=== PATIENT | female | born 1990 | race Caucasian/White ===

== ENCOUNTER 2018-02-22 10:55 | Emergency (ER) | payer MEDICAID ==
[~2018-02-22] VITALS: Ht 160 cm; Wt 71.0 kg
[2018-02-22 11:53] LABS: CLARITY URINE CLEAR (CLEAR); COLOR URINE YELLOW (YELLOW); KETONES URINE NEGATIVE (NEGATIVE); LEUKOCYTE ESTERASE URINE NEGATIVE (NEGATIVE); NITRITE URINE NEGATIVE (NEGATIVE); OCCULT BLOOD URINE 2+ (NEGATIVE); PROTEIN URINE NEGATIVE (NEGATIVE); SPECIFIC GRAVITY URINE 1.023 (1.005-1.030); UROBILINOGEN URINE 0.2 E.U./dL (0.2-1.0)
[2018-02-22 12:39] LABS: BASOPHILS % 0.5 % (0.0-2.0); EOSINOPHILS % 2.4 % (0.0-5.0); HEMATOCRIT. 39.9 % (36.0-48.0); HEMOGLOBIN. 13.6 g/dL (12.0-16.0); LYMPHOCYTES % 16.1 % (20.0-50.0); MEAN CORPUSCULAR HEMOGLOBIN 30.3 pg (28.0-32.0); MEAN CORPUSCULAR VOLUME 88.4 fL (81.0-99.0); MEAN PLATELET VOLUME 8.5 fl (7.4-10.4); MONOCYTES % 7.1 % (2.0-8.0); NEUTROPHILS % 73.9 % (40.0-76.0); PLATELET 220 x1000/uL (130-400); RED BLOOD CELL COUNT 4.51 mill/uL (4.2-5.4); RED CELL DISTRIBUTION WIDTH 12.8 % (11.6-14.6)
[2018-02-22 12:45] LABS: CHLORIDE 111 mEq/L (98-107)
[2018-02-22 13:08] LABS: B-HCG QUANTITATIVE 26024 mIU/mL (<3)
[2018-02-22 13:24] VITALS: BP 115/77
== END 2018-02-22 15:00 | disposition home or self-care (01) ==
LOC: ER 12:52
DX: O03.9 Complete or unspecified spontaneous abortion without complication (principal); Z3A.01 Less than 8 weeks gestation of pregnancy; Z98.890 Other specified postprocedural states
CPT/HCPCS: 36415; 76830; 76856; 80053; 81003; 84702; 85025; 86850; 86900; 86901; 99285; Z7610

== ENCOUNTER 2018-11-06 10:20 | Inpatient (IN) | payer MEDICAID, OTHER ==
[~2018-11-06] VITALS: Ht 157.5 cm; Wt 64.0 kg
[2018-11-06] MEDS ORDERED: SODIUM CHLORIDE 0.9% 1,000 ML IV ONE ×2 (11:02→14:00)
[2018-11-06 11:47] LABS: CLARITY URINE CLOUDY (CLEAR); COLOR URINE DARK YELLOW (YELLOW); KETONES URINE NEGATIVE (NEGATIVE); LEUKOCYTE ESTERASE URINE TRACE (NEGATIVE); NITRITE URINE NEGATIVE (NEGATIVE); OCCULT BLOOD URINE 2+ (NEGATIVE); PROTEIN URINE NEGATIVE (NEGATIVE); SPECIFIC GRAVITY URINE 1.019 (1.005-1.030); UROBILINOGEN URINE 0.2 E.U./dL (0.2-1.0)
[2018-11-06 12:04] LABS: BASOPHILS % 0.3 % (0.0-2.0); EOSINOPHILS % 5.7 % (0.0-5.0); HEMATOCRIT. 44.2 % (36.0-48.0); HEMOGLOBIN. 14.8 g/dL (12.0-16.0); LYMPHOCYTES % 21.1 % (20.0-50.0); MEAN CORPUSCULAR HEMOGLOBIN 30.2 pg (28.0-32.0); MEAN CORPUSCULAR VOLUME 90.5 fL (81.0-99.0); MEAN PLATELET VOLUME 9.8 fl (7.4-10.4); MONOCYTES % 6.3 % (2.0-8.0); NEUTROPHILS % 66.6 % (40.0-76.0); PLATELET 173 x1000/uL (130-400); RED BLOOD CELL COUNT 4.89 mill/uL (4.2-5.4); RED CELL DISTRIBUTION WIDTH 13.5 % (11.6-14.6)
[2018-11-06 12:08] LABS: CHLORIDE 110 mEq/L (98-107); INR 1.5; PROTHROMBIN TIME 14.8 sec (9.1-11.1)
[2018-11-06 12:48] LABS: HEPATITIS B SURFACE ANTIGEN NEGATIVE
[2018-11-06 13:17] LABS: HEPATITIS A AB IGM NEGATIVE (NEGATIVE)
[2018-11-06] MEDS ORDERED: METRONIDAZOLE 500 MG PREMIX 100 ML IV ONE (14:00)
[2018-11-06] MEDS ORDERED: CEFTRIAXONE 1 G PREMIX 50 ML IV ONE (14:00)
[2018-11-06] MEDS ORDERED: NA PHOS,M-B/NA PHOS,DI-BA ENEMA 118ML PR PRN (15:15)
[2018-11-06] MEDS ORDERED: CLONIDINE 0.1MG TABLET PO PRN (15:15)
[2018-11-06] MEDS ORDERED: GUAIFENESIN 200MG/10ML SUGAR FREE UDC PO PRN (15:15)
[2018-11-06] MEDS ORDERED: ZOLPIDEM TARTRATE 5MG TABLET PO PRN (15:15)
[2018-11-06] MEDS ORDERED: DOCUSATE SODIUM 100MG CAPSULE PO PRN (15:15)
[2018-11-06] MEDS ORDERED: MAGNESIUM/ALUMINUM HYDROXIDE/SIMETHICONE 30ML UDC PO PRN (15:15)
[2018-11-06] MEDS ORDERED: TRAMADOL 50MG TABLET PO PRN (15:15)
[2018-11-06] MEDS ORDERED: ONDANSETRON HCL 4MG/2ML INJ IV PRN (15:15)
[2018-11-06] MEDS ORDERED: NITROGLYCERIN 0.4MG TABLET SL SL PRN (15:15)
[2018-11-06] MEDS ORDERED: IPRATROPIUM/ALBUTEROL 0.5-3(2.5)MG/3ML NEB INH PRN (15:15)
[2018-11-07] VITALS (8 sets, daily range): BP systolic 97–108; BP diastolic 53–68
[2018-11-07] MEDS: DEXT 5%/0.45% NACL 1000ML 1,000 ML IV SCH ×3 (01:01→22:18)
[2018-11-07] MEDS: PIPERACILLIN/TAZ 3.375G PREMIX 50 ML IV SCH ×3 (01:02→18:45)
[2018-11-07 06:33] LABS: *AMPHETAMINES SCREEN URINE NEGATIVE (NEGATIVE); *BARBITURATES SCREEN URINE NEGATIVE (NEGATIVE); *BENZODIAZEPINES SCREEN URINE NEGATIVE (NEGATIVE); *COCAINE SCREEN URINE NEGATIVE (NEGATIVE)
[2018-11-07 06:34] LABS: CANNABINOID URINE SCREEN NEGATIVE (NEGATIVE); METHADONE URINE SCREEN NEGATIVE (NEGATIVE); OPIATES URINE SCREEN NEGATIVE (NEGATIVE); PHENCYCLIDINE URINE SCREEN NEGATIVE (NEGATIVE)
[2018-11-07] MEDS: PANTOPRAZOLE SODIUM 40 MG/VIAL IV SCH (08:17)
[2018-11-08] VITALS: BP 104/63
[2018-11-08] MEDS: PIPERACILLIN/TAZ 3.375G PREMIX 50 ML IV SCH ×2 (02:02→09:36)
[2018-11-08 04:00] VITALS: BP 103/57
[2018-11-08] MEDS: DEXT 5%/0.45% NACL 1000ML 1,000 ML IV SCH ×2 (06:00→19:01)
[2018-11-08 06:29] LABS: BASOPHILS % 0.3 % (0.0-2.0); EOSINOPHILS % 5.4 % (0.0-5.0); HEMATOCRIT. 39.8 % (36.0-48.0); HEMOGLOBIN. 13.3 g/dL (12.0-16.0); LYMPHOCYTES % 24.8 % (20.0-50.0); MEAN CORPUSCULAR HEMOGLOBIN 30.3 pg (28.0-32.0); MEAN CORPUSCULAR VOLUME 91.2 fL (81.0-99.0); MEAN PLATELET VOLUME 10.4 fl (7.4-10.4); MONOCYTES % 7.3 % (2.0-8.0); NEUTROPHILS % 62.2 % (40.0-76.0); PLATELET 152 x1000/uL (130-400); RED BLOOD CELL COUNT 4.37 mill/uL (4.2-5.4); RED CELL DISTRIBUTION WIDTH 13.5 % (11.6-14.6)
[2018-11-08 06:40] LABS: INR 1.1; PARTIAL THROMBOPLASTIN TIME 30.8 sec (23.4-31.0); PROTHROMBIN TIME 10.9 sec (9.1-11.1)
[2018-11-08 07:08] LABS: CHLORIDE 111 mEq/L (98-107)
[2018-11-08 08:00] VITALS: BP 108/64
[2018-11-08] MEDS: PANTOPRAZOLE SODIUM 40 MG/VIAL IV SCH (08:10)
[2018-11-08 10:59] LABS: UCG SCREEN NEGATIVE
[2018-11-08 12:00] VITALS: BP 106/65
[2018-11-08] MEDS ORDERED: IOHEXOL-300 100 ML BOTTLE ONE (14:11)
[2018-11-08] MEDS ORDERED: SIMETHICONE 40 MG/0.6 ML 30ML ONE (14:11)
[2018-11-08] MEDS ORDERED: EPINEPHRINE 0.1MG/ML (1:10,000) 10ML SYR ONE (14:22)
[2018-11-08] MEDS ORDERED: FENTANYL CITRATE/PF 50MCG/ML 2ML VIAL ONE (14:34)
[2018-11-08] MEDS ORDERED: MIDAZOLAM HCL 2 MG/2 ML VIAL ONE (14:34)
[2018-11-08] MEDS ORDERED: PROPOFOL 200MG/20ML VIAL IV ONE (14:34)
[2018-11-08] MEDS ORDERED: DEXAMETHASONE 4MG/ML 1ML VIAL ONE (14:43)
[2018-11-08] MEDS ORDERED: ONDANSETRON HCL 4MG/2ML INJ ONE (14:43)
[2018-11-08] MEDS ORDERED: METOCLOPRAMIDE HCL 10MG/2ML VIAL ONE (14:43)
[2018-11-08] MEDS ORDERED: LIDOCAINE HCL/PF 1% 10 MG/ML 5ML VIAL ONE (14:43)
[2018-11-08] MEDS ORDERED: GLYCOPYRROLATE 0.2 MG/ML 2ML VIAL ONE (15:17)
[2018-11-08] MEDS ORDERED: ROCURONIUM BROMIDE 10MG/ML VIAL 5ML IV ONE (15:51)
[2018-11-08] MEDS ORDERED: ONDANSETRON HCL 4MG/2ML INJ IV PRN (17:45)
[2018-11-08] MEDS ORDERED: KETOROLAC 30MG/ML VIAL IV NR (17:45)
[2018-11-08 18:50] VITALS: BP 103/64
[2018-11-08 20:00] VITALS: BP 119/57
[2018-11-08] MEDS: KETOROLAC 15MG/ML VIAL IV PRN (20:32)
[2018-11-08] MEDS: ACETAMINOPHEN 325MG TABLET PO PRN (22:14)
[2018-11-09] VITALS: BP 113/65
[2018-11-09] MEDS: DEXT 5%/0.45% NACL 1000ML 1,000 ML IV SCH ×2 (02:07→22:12)
[2018-11-09] MEDS: PIPERACILLIN/TAZ 3.375G PREMIX 50 ML IV SCH ×3 (02:07→17:29)
[2018-11-09 04:00] VITALS: BP 105/44
[2018-11-09] MEDS: ACETAMINOPHEN 325MG TABLET PO PRN ×2 (05:14→22:12)
[2018-11-09 07:03] LABS: CHLORIDE 109 mEq/L (98-107)
[2018-11-09 07:26] LABS: BASOPHILS % 0.1 % (0.0-2.0); EOSINOPHILS % 0.4 % (0.0-5.0); HEMATOCRIT. 39.1 % (36.0-48.0); HEMOGLOBIN. 13.1 g/dL (12.0-16.0); LYMPHOCYTES % 15.2 % (20.0-50.0); MEAN CORPUSCULAR HEMOGLOBIN 30.3 pg (28.0-32.0); MEAN CORPUSCULAR VOLUME 90.7 fL (81.0-99.0); MEAN PLATELET VOLUME 10.2 fl (7.4-10.4); MONOCYTES % 6.8 % (2.0-8.0); NEUTROPHILS % 77.5 % (40.0-76.0); PLATELET 157 x1000/uL (130-400); RED BLOOD CELL COUNT 4.31 mill/uL (4.2-5.4); RED CELL DISTRIBUTION WIDTH 13.6 % (11.6-14.6)
[2018-11-09 08:00] VITALS: BP 124/70
[2018-11-09] MEDS: PANTOPRAZOLE SODIUM 40 MG/VIAL IV SCH (09:06)
[2018-11-09] MEDS ORDERED: POTASSIUM CHLORIDE 20MEQ TABLET SR PO NR (10:45)
[2018-11-09] MEDS: KETOROLAC 15MG/ML VIAL IV PRN ×2 (11:17→17:29)
[2018-11-09 12:00] VITALS: BP 114/65
[2018-11-09 16:00] VITALS: BP 121/67
[2018-11-09 20:00] VITALS: BP 98/52
[2018-11-10] VITALS: BP 103/47
[2018-11-10] MEDS: PIPERACILLIN/TAZ 3.375G PREMIX 50 ML IV SCH ×2 (03:15→10:09)
[2018-11-10 04:00] VITALS: BP 109/50
[2018-11-10 06:40] LABS: HEMATOCRIT 39.1 % (36.0-48.0); HEMOGLOBIN 13.1 g/dL (12.0-16.0); MEAN CORPUSCULAR HEMOGLOBIN 30.5 pg (28.0-32.0); MEAN CORPUSCULAR VOLUME 90.9 fL (81.0-99.0); PLATELET 146 x1000/uL (130-400); RED BLOOD CELL COUNT 4.31 mill/uL (4.2-5.4); RED CELL DISTRIBUTION WIDTH 13.3 % (11.6-14.6)
[2018-11-10 08:00] VITALS: BP 112/64
[2018-11-10] MEDS: PANTOPRAZOLE SODIUM 40 MG/VIAL IV SCH (09:10)
[2018-11-10 11:47] VITALS: BP 112/64
== END 2018-11-10 13:05 | disposition home or self-care (01) ==
LOC: ER 10:20 → 6EST 14:22 → EDBEDREQ 14:24 → EDBEDREQSVC 21:41 → ENRESERV 21:51
PROVIDERS: ADMIT Internal Medicine; ATTEND Internal Medicine
PROC: 0FC98ZZ Extirpation of Matter from Common Bile Duct, Via Natural or Artificial Opening Endoscopic (ICD-10-PCS; principal; 2018-11-08)
PROC: BF101ZZ Fluoroscopy of Bile Ducts using Low Osmolar Contrast (ICD-10-PCS; 2018-11-08)
DX: K80.63 Calculus of gallbladder and bile duct with acute cholecystitis with obstruction (principal); E44.0 Moderate protein-calorie malnutrition; Z68.25 Body mass index [BMI] 25.0-25.9, adult; Z98.891 History of uterine scar from previous surgery
CPT/HCPCS: 36415; 74181; 74328; 76705; 80076; 80305; 81025; 83036; 85027; 86705; 86709; 86803; 87340; 99285; C1726; C1769; C9113; J0696; J1100; J1885; J2250; J2405; J2543; J2704; J2765; J3010; J3490; J7030; Q9967

== ENCOUNTER 2019-01-30 06:15 | Day surgery (SDC) | payer MEDICAID ==
[~2019-01-30] VITALS: Ht 157.5 cm; Wt 66.7 kg
[~2019-01-30 06:15] MED LIST: LACTATED RINGERS 1,000 ML IV SCH
[2019-01-30] MEDS ORDERED: ROCURONIUM BROMIDE 10MG/ML VIAL 5ML IV ONE (06:53)
[2019-01-30 06:56] LABS: BASOPHILS % 0.3 % (0.0-2.0); HEMATOCRIT. 42.5 % (36.0-48.0); HEMOGLOBIN. 14.5 g/dL (12.0-16.0); LYMPHOCYTES % 27.7 % (20.0-50.0); MEAN CORPUSCULAR HEMOGLOBIN 30.9 pg (28.0-32.0); MEAN CORPUSCULAR VOLUME 90.5 fL (81.0-99.0); MEAN PLATELET VOLUME 8.4 fl (7.4-10.4); MONOCYTES % 7.1 % (2.0-8.0); NEUTROPHILS % 59.9 % (40.0-76.0); PLATELET 208 x1000/uL (130-400); RED CELL DISTRIBUTION WIDTH 13.3 % (11.6-14.6)
[2019-01-30] MEDS ORDERED: METHYLENE BLUE 50 MG/10 ML AMP IV ONE (06:58)
[2019-01-30] MEDS ORDERED: BUPIVACAINE HCL/PF 0.5% (5MG/ML) 10ML ONE (06:59)
[2019-01-30] MEDS ORDERED: VASOPRESSIN 20 UNIT/ML 1ML ONE (06:59)
[2019-01-30 07:00] LABS: CLARITY URINE CLEAR (CLEAR); COLOR URINE YELLOW (YELLOW); KETONES URINE NEGATIVE (NEGATIVE); LEUKOCYTE ESTERASE URINE NEGATIVE (NEGATIVE); NITRITE URINE NEGATIVE (NEGATIVE); OCCULT BLOOD URINE NEGATIVE (NEGATIVE); PH URINE 5.5 (4.5-8.0); PROTEIN URINE NEGATIVE (NEGATIVE); SPECIFIC GRAVITY URINE 1.004 (1.005-1.030); UROBILINOGEN URINE 0.2 E.U./dL (0.2-1.0)
[2019-01-30 07:03] LABS: CHLORIDE 109 mEq/L (98-107); INR 0.9; PARTIAL THROMBOPLASTIN TIME 31.3 sec (23.4-31.0); PROTHROMBIN TIME 9.8 sec (9.6-11.0)
[2019-01-30 07:10] LABS: UCG SCREEN NEGATIVE
[2019-01-30] MEDS ORDERED: LIDOCAINE HCL/PF 1% 10 MG/ML 5ML VIAL ONE (08:23)
[2019-01-30] MEDS ORDERED: FENTANYL CITRATE/PF 50MCG/ML 2ML VIAL ONE (08:41)
[2019-01-30] MEDS ORDERED: PROPOFOL 200MG/20ML VIAL IV ONE (08:41)
[2019-01-30] MEDS ORDERED: MIDAZOLAM HCL 2 MG/2 ML VIAL ONE (09:17)
[2019-01-30] MEDS ORDERED: EPHEDRINE SULFATE 50MG/ML VIAL ONE (09:19)
[2019-01-30] MEDS ORDERED: SODIUM CHLORIDE 0.9% 10ML VIAL ONE (09:20)
[2019-01-30] MEDS ORDERED: SKIN ADHESIVE 0.7 GM EA TOP ONE (09:34)
[2019-01-30] MEDS ORDERED: GLYCOPYRROLATE 0.2 MG/ML 2ML VIAL ONE (09:41)
[2019-01-30] MEDS ORDERED: NEOSTIGMINE METHYLSULFATE 1MG/ML 10 ML VIAL ONE (09:41)
[2019-01-30] MEDS ORDERED: IBUPROFEN 800MG TABLET PO PRN (10:00)
[2019-01-30] MEDS: HYDROMORPHONE HCL/PF 2MG/ML CPJ IV PRN ×2 (10:13→10:31)
[2019-01-30] MEDS ORDERED: MEPERIDINE HCL/PF 25MG/ML CPJ IV PRN (10:15)
[2019-01-30] MEDS ORDERED: ONDANSETRON HCL 4MG/2ML INJ IV PRN (10:15)
[2019-01-30 10:31] VITALS: BP 105/57
== END 2019-01-30 11:10 | disposition home or self-care (01) ==
LOC: OR 06:15
PROVIDERS: ATTEND Obstetrics & Gynecology
DX: Z64.1 Problems related to multiparity (principal); Z30.2 Encounter for sterilization
CPT/HCPCS: 36415; 58670; 80053; 81003; 81025; 85025; 85610; 85730; C1725; J1170; J2250; J2704; J2710; J3010; J3490; Q9968